=== PATIENT | female | born 1995 | race Caucasian/White ===

== ENCOUNTER 2022-03-14 20:17 | Emergency (ER) | payer OTHER ==
[~2022-03-14] VITALS: Ht 162.4 cm; Wt 83.9 kg
[2022-03-14 20:52] LABS: BASOPHILS # (AUTO) 0.1 10^3/uL (0.0-0.1); BASOPHILS % (AUTO) 1 % (0-10); EOSINOPHILS % (AUTO) 0 % (0-10); HEMATOCRIT 43 % (35-52); HEMOGLOBIN 14.3 g/dL (11.5-16.0); LYMPHOCYTES # (AUTO) 2.5 10^3/uL (1.0-4.0); LYMPHOCYTES % (AUTO) 22 % (12-44); MEAN CORPUSCULAR HEMOGLOBIN 30 pg (25-34); MEAN CORPUSCULAR HGB CONC 34 g/dL (32-36); MEAN CORPUSCULAR VOLUME 89 fL (80-99); MEAN PLATELET VOLUME 9.7 fL (9.0-12.2); MONOCYTES # (AUTO) 0.9 10^3/uL (0.0-1.0); MONOCYTES % (AUTO) 8 % (0-12); NEUTROPHILS # (AUTO) 7.6 10^3/uL (1.8-7.8); NEUTROPHILS % (AUTO) 69 % (42-75); PLATELET COUNT 364 10^3/uL (130-400); WHITE BLOOD COUNT 11.1 10^3/uL (4.3-11.0)
[2022-03-14 20:58] LABS: CLARITY,URINE CLEAR; COLOR,URINE YELLOW; GLUCOSE, URINE (UA) NEGATIVE (NEGATIVE); KETONES,URINE TRACE (NEGATIVE); LEUKOCYTE ESTERASE ,URINE NEGATIVE (NEGATIVE); NITRITE,URINE NEGATIVE (NEGATIVE); PROTEIN,URINE 1+ (NEGATIVE)
[2022-03-14 21:06] LABS: ALANINE AMINOTRANSFERASE 23 U/L (0-55); ALBUMIN 4.6 GM/DL (3.2-4.5); ALKALINE PHOSPHATASE 65 U/L (40-136); BILIRUBIN,TOTAL 0.6 MG/DL (0.1-1.0); BUN/CREATININE RATIO 8; CALCIUM 9.4 MG/DL (8.5-10.1); CARBON DIOXIDE 23 MMOL/L (21-32); CHLORIDE 103 MMOL/L (98-107); CREATININE SERUM 1.01 MG/DL (0.60-1.30); GFR ESTIMATED 79; GLUCOSE 117 MG/DL (70-105); SODIUM 142 MMOL/L (135-145); TOTAL PROTEIN 7.8 GM/DL (6.4-8.2)
--- NOTE | 2022-03-14 21:16 | Diagnostic Imaging Report ---
EXAMINATION: CT abdomen and pelvis with intravenous contrast. TECHNIQUE: Multiple contiguous axial images were obtained through the abdomen and pelvis after the uneventful administration of intravenous contrast. All CT scans use one or more of the following dose optimizing techniques: automated exposure control, MA and/or KvP adjustment based on patient size and exam type or iterative reconstruction. HISTORY: Abdominal pain. Nausea and vomiting. COMPARISON: None available. FINDINGS: The heart is unremarkable. The included lung bases are clear. Focal fatty infiltration is seen along the falciform ligament. No focal hepatic lesions. The gallbladder is unremarkable. The portal vein is patent. The spleen, pancreas, adrenal glands, and kidneys have a normal appearance. There is no pathologically enlarged mesenteric or retroperitoneal adenopathy. The bowel loops are nondilated. The appendix is visualized in the right lower quadrant and has a normal appearance. There is no free fluid or free air. No acute osseous abnormalities. Ureters and bladder are grossly normal. Dominant follicle/cyst is seen in the left ovary measuring 3.0 x 2.2 cm. There is no free air, loculated collection, or adenopathy in the pelvis. IMPRESSION: 1. No bowel obstruction. No free fluid or free air. Normal appendix. 2. Focal fatty infiltration along the falciform ligament. 3. Dominant follicle/cyst in the left ovary. Dictated by: Dictated on workstation # [id number]
[2022-03-14 21:25] LABS: BACTERIA,URINE MODERATE /HPF; BILIRUBIN,URINE 1+ (NEGATIVE); WBC,URINE 0-2 /HPF
[2022-03-14] MEDS ORDERED: NS 100 ML (IVPB) BAG IV ONE (21:30)
[2022-03-14] MEDS ORDERED: CATHETER FLUSH 10 ML SYR IV PRN (21:30)
[2022-03-14] MEDS ORDERED: IOHEXOL 350 MG/ML 100 ML (OMNIPAQUE 350) VIAL IV ONE (21:30)
[2022-03-14 21:41] LABS: EOSINOPHILS % (MANUAL) 1 %; LYMPHOCYTES % (MANUAL) 27 %; MONOCYTES % (MANUAL) 5 %; NEUTROPHILS % (MANUAL) 67 %; RBC MORPH NORMAL
--- NOTE | 2022-03-14 22:01 | ED GI ---
General Chief Complaint: Abdominal/GI Problems Stated Complaint: ABD PAIN,N/V,CHILLS Nursing Triage Note: PT ARRIVED POV WITH MOTHER. PT STATED THAT SHE HAS HAD LEFT ABD PAIN X3 DAYS WITH N/V AND WAS SEEN YESTERDAY AT URGENT CARE IN . PT HAS HX OF CONSTIPATION. (DENISE VILLALTA APRN) History of Present Illness Date Seen by Provider: Mar 14, 2022 Time Seen by Provider: 20:30 Initial Comments Patient is a previously healthy 26-year-old female who presents to the emergency department with approximately 3 days of generalized abdominal pain as well as nausea/vomiting/diarrhea. Patient states she was seen in urgent care near her home in [place] yesterday. She states there were no specific test done and it was recommended she be seen in the emergency department she declined at that time. She traveled home yesterday to be with her mother. She states the pain is episodic but can be severe when it occurs. She states it is a crampy aching pain when it is present. Denies any specific pain or nausea at the time of my exam. She states on Friday and Friday she had diarrhea but has had none since. She has had 1 episode of vomiting today. No fevers. She states a friend had GI symptoms just prior to hers beginning. (DENISE VILLALTA APRN) Allergies and Home Medications Allergies Coded Allergies: No Known Drug Allergies (Unverified , 03/14/22) Patient Home Medication List Home Medication List Reviewed: Yes (DENISE VILLALTA APRN) Hyoscyamine Sulfate (Levsin-Sl) 0.125 Mg Tab.subl, 0.125 MG SL TID Prescribed by: Denise Villalta on 03/14/222201 Ondansetron (Ondansetron Odt) 4 Mg Tab.rapdis, 4 MG SL Q4H PRN for NAUSEA/VOMITING Prescribed by: Denise Villalta on 03/14/222201 Review of Systems Review of Systems Constitutional: no symptoms reported EENTM: No Symptoms Reported Respiratory: No Symptoms Reported Cardiovascular: No Symptoms Reported Gastrointestinal: See HPI, Abdominal Pain, Diarrhea, Nausea, Vomiting Musculoskeletal: no symptoms reported Skin: no symptoms reported Psychiatric/Neurological: No Symptoms Reported (DENISE VILLALTA APRN) Past [id number] Hx Patient Social History Tobacco Use?: Yes Use of E-Cig and/or Vaping dev: Yes E-Cig or Vaping type used: Nicotine Substance use?: Yes Substance type: Marijuana Substance frequency: Daily Alcohol Use?: Yes Alcohol Frequency: Several times a month Pt feels they are or have been: Unable to obtain (DENISE VILLALTA APRN) Physical Exam Vital Signs Vital Signs - First Documented 03/14/22 03/14/22 20:27 22:18 Temp 37.2 Pulse 99 B/P (MAP) 130/99 (109) Pulse Ox 98 O2 Delivery Room Air (CLARI NGO MD) Vital Signs Capillary Refill : (DENISE VILLALTA APRN) Height/Weight/BMI Height: '" Weight: lbs. oz. kg; 31.00 BMI Method: General Appearance: WD/WN, no apparent distress HEENT: PERRL/EOMI, TMs normal, pharynx normal Neck: non-tender, full range of motion, supple, normal inspection Respiratory: chest non-tender, lungs clear, no accessory muscle use Cardiovascular: regular rate, rhythm Gastrointestinal: normal bowel sounds, non tender, soft Extremities: normal range of motion, non-tender, normal inspection Neurologic/Psychiatric: no motor/sensory deficits, alert, normal mood/affect, oriented x 3 Skin: normal color, warm/dry (DENISE VILLALTA APRN) Progress/Results/Core Measures Results/Orders Lab Results Laboratory Tests Test 03/14/22 20:37 03/14/22 20:54 03/14/22 21:12 Range/Units White Blood Count 11.1 H 4.3-11.0 10^3/uL Red Blood Count 4.81 3.80-5.11 10^6/uL Hemoglobin 14.3 11.5-16.0 g/dL Hematocrit 43 35-52 % Mean Corpuscular Volume 89 80-99 fL Mean Corpuscular Hemoglobin 30 25-34 pg Mean Corpuscular Hemoglobin Concent 34 32-36 g/dL Red Cell Distribution Width 13.0 10.0-14.5 % Platelet Count 364 130-400 10^3/uL Mean Platelet Volume 9.7 9.0-12.2 fL Immature Granulocyte % (Auto) 0 % Neutrophils (%) (Auto) 69 42-75 % Lymphocytes (%) (Auto) 22 12-44 % Monocytes (%) (Auto) 8 0-12 % Eosinophils (%) (Auto) 0 0-10 % Basophils (%) (Auto) 1 0-10 % Neutrophils # (Auto) 7.6 1.8-7.8 10^3/uL Lymphocytes # (Auto) 2.5 1.0-4.0 10^3/uL Monocytes # (Auto) 0.9 0.0-1.0 10^3/uL Eosinophils # (Auto) 0.0 0.0-0.3 10^3/uL Basophils # (Auto) 0.1 0.0-0.1 10^3/uL Immature Granulocyte # (Auto) 0.0 0.0-0.1 10^3/uL Neutrophils % (Manual) 67 % Lymphocytes % (Manual) 27 % Monocytes % (Manual) 5 % Eosinophils % (Manual) 1 % Blood Morphology Comment NORMAL Sodium Level 142 135-145 MMOL/L Potassium Level 3.0 L 3.6-5.0 MMOL/L Chloride Level 103 98-107 MMOL/L Carbon Dioxide Level 23 21-32 MMOL/L Anion Gap 16 H 5-14 MMOL/L Blood Urea Nitrogen 8 7-18 MG/DL Creatinine 1.01 0.60-1.30 MG/DL Estimat Glomerular Filtration Rate 79 BUN/Creatinine Ratio 8 Glucose Level 117 H 70-105 MG/DL Calcium Level 9.4 8.5-10.1 MG/DL Corrected Calcium 8.5-10.1 MG/DL Total Bilirubin 0.6 0.1-1.0 MG/DL Aspartate Amino Transf (AST/SGOT) 21 5-34 U/L Alanine Aminotransferase (ALT/SGPT) 23 0-55 U/L Alkaline Phosphatase 65 40-136 U/L Total Protein 7.8 6.4-8.2 GM/DL Albumin 4.6 H 3.2-4.5 GM/DL Urine Color YELLOW Urine Clarity CLEAR Urine pH 6.0 5-9 Urine Specific [place] >=1.030 1.016-1.022 Urine Protein 1+ H NEGATIVE Urine Glucose (UA) NEGATIVE NEGATIVE Urine Ketones TRACE H NEGATIVE Urine Nitrite NEGATIVE NEGATIVE Urine Bilirubin 1+ H NEGATIVE Urine Urobilinogen 0.2 < = 1.0 MG/DL Urine Leukocyte Esterase NEGATIVE NEGATIVE Urine RBC (Auto) 3+ H NEGATIVE Urine RBC 2-5 H /HPF Urine WBC 0-2 /HPF Urine Squamous Epithelial Cells 5-10 /HPF Urine Crystals NONE /LPF Urine Bacteria MODERATE H /HPF Urine Casts NONE /LPF Urine Mucus LARGE H /LPF Urine Culture Indicated YES Influenza Type A (RT-PCR) Not Detected Not Detecte Influenza Type B (RT-PCR) Not Detected Not Detecte SARS-CoV-2 RNA (RT-PCR) Not Detected Not Detecte (CLARI NGO MD) Medications Given in ED Current Medications Medications Dose Ordered Sig/Ricco Route Start Time Stop Time Status Last Admin Dose Admin Iohexol 100 ml ONCE ONCE IV 03/14/22 21:30 03/14/22 21:31 DC 03/14/22 21:19 80 ML Ondansetron HCl 4 mg ONCE ONCE PO 03/14/22 22:15 03/14/22 22:14 DC 03/14/22 22:08 4 MG Sodium Chloride 10 ml NEEDED PRN IV 03/14/22 21:30 03/14/22 22:14 DC 03/14/22 21:20 10 ML Sodium Chloride 100 ml ONCE ONCE IV 03/14/22 21:30 03/14/22 21:31 DC 03/14/22 21:20 80 ML (CLARI NGO MD) Vital Signs/I&O 03/14/22 03/14/22 20:27 22:18 Temp 37.2 Pulse 99 88 B/P (MAP) 130/99 (109) 126/89 Pulse Ox 98 100 O2 Delivery Room Air (CLARI NGO MD) Blood Pressure Mean: 109 Progress Progress Note : Progress Note Patient is nontoxic and well-hydrated on exam. No adventitious lung sounds or increased work of breathing noted. Vital signs reassuring. No focal provocation of pain with palpation of the abdomen. No abdominal distention or rigidity appreciated. Laboratory evaluation is largely unremarkable. Urinalysis without evidence of infection. There is some hematuria which is expected given patient is currently on her menses. CT of the abdomen pelvis reveals no acute abnormality. Left ovarian cyst noted but patient is not having any left adnexal pain. Viral etiology of symptoms likely. Discussed supportive care and anticipatory guidance. Return precautions for urgent symptomology discussed. Patient verbalized understanding. (DENISE VILLALTA APRN) Departure Impression Primary Impression: AGE (acute gastroenteritis) Disposition: HOME, SELF-CARE Condition: Stable Departure-Patient Inst. Decision time for Depature: 22:00 (DENISE VILLALTA APRN) Referrals: NO,LOCAL PHYSICIAN (PCP/Family) Primary Care Physician Patient Instructions: Viral Gastroenteritis, Adult (DC) Scripts Ondansetron (Ondansetron Odt) 4 Mg Tab.rapdis 4 MG SL Q4H PRN for NAUSEA/VOMITING for 5 Days, #30 TAB 0 Refills Prov: DENISE VILLALTA APRN 03/14/22 Hyoscyamine Sulfate (Levsin-Sl) 0.125 Mg Tab.subl 0.125 MG SL TID for 5 Days, #15 TAB 0 Refills Prov: DENISE VILLALTA APRN 03/14/22 ATTENDING PHYSICIAN NOTE: I was physically present as attending physician in the emergency department during the care of this patient, but I was not directly involved in the decision making or delivery of care for this patient. (CLARI NGO MD) DENISE VILLALTA APRN Mar 14, 2022 22:01 CLARI NGO MD Mar 15, 2022 01:08
[2022-03-14] MEDS ORDERED: HYOS0.1283 SL (22:02)
[2022-03-14] MEDS ORDERED: ONDA4TAB11 SL (22:02)
[2022-03-14] MEDS ORDERED: ONDANSETRON 4 MG (ZOFRAN) ORAL DISSOLVE TAB PO ONE (22:15)
[2022-03-14 22:18] VITALS: BP 126/89
== END 2022-03-14 22:14 | disposition home or self-care (01) ==
LOC: ER 20:21
DX: K52.9 Noninfective gastroenteritis and colitis, unspecified (principal); N83.202 Unspecified ovarian cyst, left side; F17.290 Nicotine dependence, other tobacco product, uncomplicated; Z20.822 Contact with and (suspected) exposure to COVID-19
CPT/HCPCS: 36415; 74177; 80053; 81000; 84703; 85007; 85027; 87077; 87088; 87636